=== PATIENT | female | born 1990 | race Caucasian/White ===

== ENCOUNTER 2021-06-25 11:43 | Emergency (ER) | payer BC ==
[2021-06-25 12:47] VITALS: BP 114/83; PULSE 113; RESP 18; TEMP 100.5
[2021-06-25] MEDS ORDERED: SODIUM CHLORIDE 0.9% 1,000 ML IV ONE (13:55)
[2021-06-25] MEDS ORDERED: ACETAMINOPHEN TAB 500 MG TAB PO STA (13:55)
--- NOTE | 2021-06-25 13:58 | ED ---
General Adult HPI - General Chief complaint: Recheck/Abnormal Lab/Rx Stated complaint: COVID Exposure,Wants COVID Test Time Seen by Provider: 06/25/21 13:24 Source: patient, RN notes reviewed Mode of arrival: ambulatory Limitations: no limitations - History of Present Illness Initial comments: 31-year-old female presents emergency Department with chief complaint of COVID- 19 closure. Patient states she has mild symptoms including cough congestion fevers chills body aches. - Related Data Allergies Allergy/AdvReac Type Severity Reaction Status Date / Time amoxicillin [From Augmentin] Allergy Rash/Hives Verified 06/25/21 12:47 clavulanic acid Allergy Rash/Hives Verified 06/25/21 12:47 [From Augmentin] Review of Systems ROS Statement: Those systems with pertinent positive or pertinent negative responses have been documented in the HPI. ROS Other: All systems not noted in ROS Statement are negative. Past Medical History Past Medical History: Hyperlipidemia History of Any Multi-Drug Resistant Organisms: None Reported Past Surgical History: No Surgical Hx Reported Past Psychological History: No Psychological Hx Reported Smoking Status: Never smoker Past Alcohol Use History: Occasional Past Drug Use History: None Reported General Exam Limitations: no limitations General appearance: alert, in no apparent distress Head exam: Present: atraumatic, normocephalic, normal inspection Eye exam: Present: normal appearance, PERRL, EOMI. Absent: scleral icterus, conjunctival injection, periorbital swelling ENT exam: Present: normal exam, normal oropharynx, mucous membranes moist Neck exam: Present: normal inspection, full ROM. Absent: tenderness, meningismus, lymphadenopathy Respiratory exam: Present: normal lung sounds bilaterally. Absent: respiratory distress, wheezes, rales, rhonchi, stridor Cardiovascular Exam: Present: normal rhythm, tachycardia, normal heart sounds. Absent: systolic murmur, diastolic murmur, rubs, gallop, clicks Course Vital Signs 06/25/21 12:45 Temperature 100.5 F H Pulse Rate 113 H Respiratory 18 Rate Blood Pressure 114/83 O2 Sat by Pulse 99 Oximetry Medical Decision Making - Medical Decision Making Patient is positive or COVID-19, patient will receive monoclonal antibodies will be discharged stable condition. - Lab Data Lab Results 06/25/21 Range/Units 12:45 Coronavirus (PCR) Detected A (Not Detectd) Disposition Clinical Impression: COVID-19 Disposition: HOME SELF-CARE Condition: Stable Instructions (If sedation given, give patient instructions): Coronavirus Disease 2019 (COVID-19) Additional Instructions: Please return to the Emergency Department if symptoms worsen or any other concerns. Is patient prescribed a controlled substance at d/c from ED?: No Referrals: Nonstaff,Physician [Primary Care Provider] - 1-2 days
[2021-06-25] MEDS ORDERED: BAMLANIVIMAB (EUA) 700 MG, ETESEVIMAB (EUA) 1,400 MG in SODIUM CHLORIDE 0.9% 50 ML IVPB ONE (14:30)
[2021-06-25] MEDS ORDERED: SODIUM CHLORIDE 0.9% 50 ML IVPB ONE (15:00)
== END 2021-06-25 16:19 | disposition home or self-care (01) ==
LOC: EC 11:43
DX: U07.1 COVID-19 (principal); Z88.1 Allergy status to other antibiotic agents
CPT/HCPCS: 99283 ×2; 96365; 96361 ×2; 87635; M0243; J3490

== ENCOUNTER 2021-11-02 17:49 | Observation (INO) | payer BC ==
[2021-11-02] MEDS ORDERED: SODIUM CHLORIDE 0.9% 1,000 ML IV STA (21:22)
[2021-11-02] MEDS ORDERED: METOCLOPRAMIDE 5 MG/ML 2 ML VIAL IVP STA (21:35)
[2021-11-02] MEDS ORDERED: ACETAMINOPHEN TAB 325 MG TAB PO STA (22:09)
[2021-11-02 23:52] LABS: Appearance,Urine Clear (Clear); Bilirubin,Urine Negative (Negative); Blood,Urine Negative (Negative); Color,Urine Yellow; Glucose,Urine (UA) Negative (Negative); Ketones,Urine 4+ (Negative); Leukocyte Esterase,Urine Small (Negative); Mucus,Urine Few /hpf; Nitrite,Urine Negative (Negative); PH, Urine 5.5 (5.0-8.0); Protein,Urine Trace (Negative); RBC,Urine <1 /hpf (0-5); Specific Gravity,Urine 1.024 (1.001-1.035); Squamous Epithelial Cell,Urine 2 /hpf (0-4); Urobilinogen,Urine <2.0 mg/dL (<2.0); WBC,Urine 3 /hpf (0-5)
--- NOTE | 2021-11-02 23:59 | ED ---
Nausea/Vomiting/Diarrhea HPI - General Chief complaint: Nausea/Vomiting/Diarrhea Stated complaint: NVD,10wks Time Seen by Provider: 11/02/21 21:06 Source: patient, family, RN notes reviewed Mode of arrival: ambulatory Limitations: no limitations - History of Present Illness Initial comments: This is a 31-year-old 10 week female who presents to the emergency department for nausea, vomiting, and diarrhea. Her partner recently recovered from a GI bug that lasted 48 hours. She has been having symptoms for approximately 36 hours. His symptoms also included nausea, vomiting, and diarrhea. She has not measured any fevers at home, however she does have an elevated temperature here. She does have an appointment with her ic designer gate arrays scheduled for next week. Denies any vaginal bleeding/leaking or abdominal pain. MD complaint: nausea, vomiting, diarrhea Associated Abdominal Pain: No Worsens with: eating Context: sick contacts - Related Data Home Medications Medication Instructions Recorded Confirmed Eye-Gojf-Yhowi Acid 1 cap PO DAILY 11/02/21 11/02/21 [-U Capsule (formulary)] Previous Rx's Medication Instructions Recorded Metoclopramide HCl [Reglan] 5 mg PO TID PRN #10 tablet 11/03/21 Allergies Allergy/AdvReac Type Severity Reaction Status Date / Time amoxicillin [From Augmentin] Allergy Rash/Hives Verified 11/02/21 22:11 clavulanic acid Allergy Rash/Hives Verified 11/02/21 22:11 [From Augmentin] Review of Systems ROS Statement: Those systems with pertinent positive or pertinent negative responses have been documented in the HPI. ROS Other: All systems not noted in ROS Statement are negative. Constitutional: Denies: fever, chills ENT: Denies: ear pain, throat pain Respiratory: Denies: cough, dyspnea Cardiovascular: Denies: chest pain, palpitations Gastrointestinal: Reports: nausea, vomiting, diarrhea. Denies: abdominal pain Genitourinary: Denies: urgency, dysuria Skin: Denies: rash, lesions Neurological: Denies: headache Past Medical History Past Medical History: Hyperlipidemia History of Any Multi-Drug Resistant Organisms: None Reported Past Surgical History: No Surgical Hx Reported Past Psychological History: No Psychological Hx Reported Smoking Status: Never smoker Past Alcohol Use History: None Reported, Occasional Past Drug Use History: None Reported General Exam Limitations: no limitations General appearance: alert, in distress Head exam: Present: atraumatic, normocephalic, normal inspection ENT exam: Present: mucous membranes dry Neck exam: Present: normal inspection. Absent: tenderness, meningismus, lymphadenopathy Respiratory exam: Present: normal lung sounds bilaterally. Absent: respiratory distress, wheezes, rales, rhonchi, stridor Cardiovascular Exam: Present: regular rate, normal rhythm, normal heart sounds. Absent: systolic murmur, diastolic murmur, rubs, gallop, clicks GI/Abdominal exam: Present: soft, hyperactive bowel sounds. Absent: distended, tenderness Neurological exam: Present: alert, oriented X3, CN II-XII intact Psychiatric exam: Present: normal affect, normal mood Skin exam: Present: warm, dry, intact, normal color. Absent: rash Course Vital Signs 11/02/21 11/02/21 18:21 23:39 Temperature 100.6 F H 97.9 F Pulse Rate 113 H 98 Respiratory 20 16 Rate Blood Pressure 111/65 O2 Sat by Pulse 98 100 Oximetry Medical Decision Making - Medical Decision Making This is a 31-year-old female who presents to the emergency department with nausea, vomiting, and diarrhea. Patient is also noted be 10 weeks . She was rehydrated with a 1 liter bolus and given vitamin B6 and Reglan for the nausea and vomiting. Discussed that Reglan has been shown to be among the safest of the antiemetics in . Tylenol administered as well for the low grade fever, and her temperature went from 100.6 degrees F to 97.9 degrees F. CBC and CMP unremarkable and her UA was consistent with dehydration. 10 Reglan sent to the patient's pharmacy, advised to use this sparingly for uncontrolled nausea and vomiting. Advised she try the combination of vitamin B6 and unisom to begin with. Patient inquired about anti-diarrheal medication. Informed them that Imodium can be used short term, for no more than 48hrs. This can be purchased OTC, as their insurance plan will not cover it according to the EMR. Advised she continue to push the fluids as much as possible and ease into foods to avoid exacerbating her symptoms. The lab called back with a critical potassium value of 2.6. Patient replaced with 40 mEq PO and 20 mEq IV, as well as given another 1L fluid bolus. 1 dose of imodium administered as well for patient's diarrhea. Repeat labs ordered for potassium, magnesium, and phosphorus. Patient will be hooked up to the food and beverage coordinator given the low potassium. This case was discussed in detail with the attending ED physician. Presentation, findings, and treatment plan discussed in detail as well. Patient will be signed out to Dr. Mazariegos, who will reevaluate the patient throughout the night. - Lab Data Result diagrams: 11/03/21 00:19 11/03/21 00:19 Lab Results 11/02/21 11/03/21 11/03/21 Range/Units 23:29 00:19 00:19 WBC 5.9 (3.8-10.6) k/uL RBC 4.29 (3.80-5.40) m/uL Hgb 14.2 (11.4-16.0) gm/dL Hct 39.5 (34.0-46.0) % MCV 92.2 (80.0-100.0) fL MCH 33.1 (25.0-35.0) pg MCHC 35.9 (31.0-37.0) g/dL RDW 13.2 (11.5-15.5) % Plt Count 182 (150-450) k/uL MPV 6.9 Neutrophils % 80 % Lymphocytes % 12 % Monocytes % 6 % Eosinophils % 1 % Basophils % 0 % Neutrophils # 4.7 (1.3-7.7) k/uL Lymphocytes # 0.7 L (1.0-4.8) k/uL Monocytes # 0.3 (0-1.0) k/uL Eosinophils # 0.1 (0-0.7) k/uL Basophils # 0.0 (0-0.2) k/uL Sodium 130 L (137-145) mmol/L Potassium 2.6 L* (3.5-5.1) mmol/L Chloride 103 (98-107) mmol/L Carbon Dioxide 23 (22-30) mmol/L Anion Gap 4 mmol/L BUN 8 (7-17) mg/dL Creatinine 0.55 (0.52-1.04) mg/dL Est GFR (CKD-EPI)AfAm >90 (>60 ml/min/1.73 sqM) Est GFR (CKD-EPI)NonAf >90 (>60 ml/min/1.73 sqM) Glucose 101 H (74-99) mg/dL Calcium 7.6 L (8.4-10.2) mg/dL Total Bilirubin 1.1 (0.2-1.3) mg/dL AST 18 (14-36) U/L ALT 12 (4-34) U/L Alkaline Phosphatase 37 L (38-126) U/L Total Protein 5.4 L (6.3-8.2) g/dL Albumin 3.0 L (3.5-5.0) g/dL Urine Color Yellow Urine Appearance Clear (Clear) Urine pH 5.5 (5.0-8.0) Ur Specific [place] 1.024 (1.001-1.035) Urine Protein Trace H (Negative) Urine Glucose (UA) Negative (Negative) Urine Ketones 4+ H (Negative) Urine Blood Negative (Negative) Urine Nitrite Negative (Negative) Urine Bilirubin Negative (Negative) Urine Urobilinogen <2.0 (<2.0) mg/dL Ur Leukocyte Esterase Small H (Negative) Urine RBC <1 (0-5) /hpf Urine WBC 3 (0-5) /hpf Ur Squamous Epith Cells 2 (0-4) /hpf Urine Mucus Few H (None) /hpf Disposition Clinical Impression: Viral gastroenteritis Disposition: HOME SELF-CARE Instructions (If sedation given, give patient instructions): Dehydration (ED), Gastroenteritis (ED) Additional Instructions: Return to the emergency department if your symptoms worsen or do not improve. Drink plenty of fluids and slowly expand your diet to avoid exacerbating symptoms. Contact your ic designer gate arrays tomorrow morning and inform them of the ER visit. Follow up with your primary care provider in 1 to 2 days. Prescriptions: Metoclopramide HCl [Reglan] 5 mg PO TID PRN #10 tablet PRN Reason: Nausea And Vomiting Is patient prescribed a controlled substance at d/c from ED?: No Referrals: Michelle Arita DO [Primary Care Provider] - 1-2 days
[2021-11-03] MEDS ORDERED: PYRIDOXINE 100 MG/ML 1 ML VIAL IVP ONE (00:02)
[2021-11-03 00:30] LABS: Basophils % (A) 0 %; Eosinophils # (A) 0.1 k/uL (0-0.7); Eosinophils % (A) 1 %; HCT 39.5 % (34.0-46.0); HGB 14.2 gm/dL (11.4-16.0); Lymphocytes # (A) 0.7 k/uL (1.0-4.8); Lymphocytes % (A) 12 %; MCH 33.1 pg (25.0-35.0); MCHC 35.9 g/dL (31.0-37.0); MCV 92.2 fL (80.0-100.0); Mean Platelet Volume 6.9; Monocytes # (A) 0.3 k/uL (0-1.0); Monocytes % (A) 6 %; Neutrophils # (A) 4.7 k/uL (1.3-7.7); Neutrophils % (A) 80 %; Platelet Count 182 k/uL (150-450); RBC 4.29 m/uL (3.80-5.40); RDW 13.2 % (11.5-15.5); WBC 5.9 k/uL (3.8-10.6)
[2021-11-03 00:41] LABS: ALT 12 U/L (4-34); AST 18 U/L (14-36); African American GFR (CKD) >90 (>60 ml/min/1.73 sqM); Alkaline Phosphatase 37 U/L (38-126); Anion Gap 4 mmol/L; Blood Urea Nitrogen 8 mg/dL (7-17); Calcium 7.6 mg/dL (8.4-10.2); Carbon Dioxide 23 mmol/L (22-30); Chloride 103 mmol/L (98-107); Glucose 101 mg/dL (74-99); Non-African American GFR(CKD) >90 (>60 ml/min/1.73 sqM); Sodium 130 mmol/L (137-145); Total Bilirubin 1.1 mg/dL (0.2-1.3); Total Protein 5.4 g/dL (6.3-8.2)
[2021-11-03 01:21] LABS: Potassium 2.6 mmol/L (3.5-5.1)
[2021-11-03] MEDS ORDERED: POTASSIUM BICARBONATE/CIT AC 20 MEQ TABLET.EFF PO ONE ×2 (01:23→03:30)
[2021-11-03] MEDS ORDERED: LOPERAMIDE 2 MG CAP PO STA (01:25)
[2021-11-03] MEDS ORDERED: SODIUM CHLORIDE 0.9% 1,000 ML IV ONE (01:30)
[2021-11-03] MEDS ORDERED: POTASSIUM CHLORIDE 20 MEQ in WATER FOR INJECTION 1 100ML.BAG IVPB STA (01:30)
[2021-11-03 01:45] LABS: Magnesium 1.5 mg/dL (1.6-2.3); Phosphorus 2.9 mg/dL (2.5-4.5)
[2021-11-03 02:14] VITALS: PULSE 90; RESP 18
[2021-11-03] MEDS ORDERED: diphenhydrAMINE 50 MG/ML 1 ML VIAL IVP STA (03:30)
[2021-11-03] MEDS ORDERED: MAGNESIUM OXIDE 400 MG TAB PO STA ×2 (03:31)
[2021-11-03] MEDS ORDERED: ACETAMINOPHEN TAB 325 MG TAB PO PRN (03:34)
[2021-11-03] MEDS ORDERED: NALOXONE 0.4 MG/ML 1 ML VIAL IV PRN (03:34)
[2021-11-03] MEDS ORDERED: ONDANSETRON 4 MG/2 ML VIAL IVP PRN (03:34)
[2021-11-03] MEDS ORDERED: diphenhydrAMINE 50 MG/ML 1 ML VIAL IVP PRN (03:36)
--- NOTE | 2021-11-03 03:38 | ED ---
Medical Decision Making - Lab Data Result diagrams: 11/03/21 00:19 11/03/21 00:19 Lab Results 11/02/21 11/02/21 11/03/21 Range/Units 23:29 23:29 00:19 WBC 5.9 (3.8-10.6) k/uL RBC 4.29 (3.80-5.40) m/uL Hgb 14.2 (11.4-16.0) gm/dL Hct 39.5 (34.0-46.0) % MCV 92.2 (80.0-100.0) fL MCH 33.1 (25.0-35.0) pg MCHC 35.9 (31.0-37.0) g/dL RDW 13.2 (11.5-15.5) % Plt Count 182 (150-450) k/uL MPV 6.9 Neutrophils % 80 % Lymphocytes % 12 % Monocytes % 6 % Eosinophils % 1 % Basophils % 0 % Neutrophils # 4.7 (1.3-7.7) k/uL Lymphocytes # 0.7 L (1.0-4.8) k/uL Monocytes # 0.3 (0-1.0) k/uL Eosinophils # 0.1 (0-0.7) k/uL Basophils # 0.0 (0-0.2) k/uL Sodium (137-145) mmol/L Potassium (3.5-5.1) mmol/L Chloride (98-107) mmol/L Carbon Dioxide (22-30) mmol/L Anion Gap mmol/L BUN (7-17) mg/dL Creatinine (0.52-1.04) mg/dL Est GFR (CKD-EPI)AfAm (>60 ml/min/1.73 sqM) Est GFR (CKD-EPI)NonAf (>60 ml/min/1.73 sqM) Glucose (74-99) mg/dL Calcium (8.4-10.2) mg/dL Phosphorus (2.5-4.5) mg/dL Magnesium (1.6-2.3) mg/dL Total Bilirubin (0.2-1.3) mg/dL AST (14-36) U/L ALT (4-34) U/L Alkaline Phosphatase (38-126) U/L Total Protein (6.3-8.2) g/dL Albumin (3.5-5.0) g/dL HCG, Quant 206622.0 mIU/mL Urine Color Yellow Urine Appearance Clear (Clear) Urine pH 5.5 (5.0-8.0) Ur Specific [place] 1.024 (1.001-1.035) Urine Protein Trace H (Negative) Urine Glucose (UA) Negative (Negative) Urine Ketones 4+ H (Negative) Urine Blood Negative (Negative) Urine Nitrite Negative (Negative) Urine Bilirubin Negative (Negative) Urine Urobilinogen <2.0 (<2.0) mg/dL Ur Leukocyte Esterase Small H (Negative) Urine RBC <1 (0-5) /hpf Urine WBC 3 (0-5) /hpf Ur Squamous Epith Cells 2 (0-4) /hpf Urine Mucus Few H (None) /hpf 11/03/21 11/03/21 Range/Units 00:19 00:19 WBC (3.8-10.6) k/uL RBC (3.80-5.40) m/uL Hgb (11.4-16.0) gm/dL Hct (34.0-46.0) % MCV (80.0-100.0) fL MCH (25.0-35.0) pg MCHC (31.0-37.0) g/dL RDW (11.5-15.5) % Plt Count (150-450) k/uL MPV Neutrophils % % Lymphocytes % % Monocytes % % Eosinophils % % Basophils % % Neutrophils # (1.3-7.7) k/uL Lymphocytes # (1.0-4.8) k/uL Monocytes # (0-1.0) k/uL Eosinophils # (0-0.7) k/uL Basophils # (0-0.2) k/uL Sodium 130 L (137-145) mmol/L Potassium 2.6 L* (3.5-5.1) mmol/L Chloride 103 (98-107) mmol/L Carbon Dioxide 23 (22-30) mmol/L Anion Gap 4 mmol/L BUN 8 (7-17) mg/dL Creatinine 0.55 (0.52-1.04) mg/dL Est GFR (CKD-EPI)AfAm >90 (>60 ml/min/1.73 sqM) Est GFR (CKD-EPI)NonAf >90 (>60 ml/min/1.73 sqM) Glucose 101 H (74-99) mg/dL Calcium 7.6 L (8.4-10.2) mg/dL Phosphorus 2.9 (2.5-4.5) mg/dL Magnesium 1.5 L (1.6-2.3) mg/dL Total Bilirubin 1.1 (0.2-1.3) mg/dL AST 18 (14-36) U/L ALT 12 (4-34) U/L Alkaline Phosphatase 37 L (38-126) U/L Total Protein 5.4 L (6.3-8.2) g/dL Albumin 3.0 L (3.5-5.0) g/dL HCG, Quant mIU/mL Urine Color Urine Appearance (Clear) Urine pH (5.0-8.0) Ur Specific [place] (1.001-1.035) Urine Protein (Negative) Urine Glucose (UA) (Negative) Urine Ketones (Negative) Urine Blood (Negative) Urine Nitrite (Negative) Urine Bilirubin (Negative) Urine Urobilinogen (<2.0) mg/dL Ur Leukocyte Esterase (Negative) Urine RBC (0-5) /hpf Urine WBC (0-5) /hpf Ur Squamous Epith Cells (0-4) /hpf Urine Mucus (None) /hpf Disposition Clinical Impression: Viral gastroenteritis, Fever, Hypokalemia, Hypomagnesemia, Dehydration, Gastroenteritis, Disposition: ADMITTED IP TO [facility] Instructions (If sedation given, give patient instructions): Dehydration (ED), Gastroenteritis (ED) Additional Instructions: Return to the emergency department if your symptoms worsen or do not improve. Drink plenty of fluids and slowly expand your diet to avoid exacerbating symptoms. Contact your loan approver tomorrow morning and inform them of the ER visit. Follow up with your primary care provider in 1 to 2 days. Prescriptions: Metoclopramide HCl [Reglan] 5 mg PO TID PRN #10 tablet PRN Reason: Nausea And Vomiting Is patient prescribed a controlled substance at d/c from ED?: No Referrals: Michelle Arita, DO [Primary Care Provider] - 1-2 days
[2021-11-03] MEDS ORDERED: SODIUM CHLORIDE 0.9% 1,000 ML IV SCH (03:45)
[2021-11-03 06:51] VITALS: BP 107/69; TEMP 98.6
[2021-11-03] MEDS ORDERED: PYRIDOXINE 100 MG/ML 1 ML VIAL IVP SCH (09:00)
[2021-11-03 09:02] LABS: Basophils % (A) 0 %; Eosinophils % (A) 1 %; HCT 43.3 % (34.0-46.0); HGB 15.4 gm/dL (11.4-16.0); Lymphocytes # (A) 0.8 k/uL (1.0-4.8); Lymphocytes % (A) 14 %; MCH 33.2 pg (25.0-35.0); MCHC 35.5 g/dL (31.0-37.0); MCV 93.4 fL (80.0-100.0); Mean Platelet Volume 7.1; Monocytes # (A) 0.4 k/uL (0-1.0); Monocytes % (A) 7 %; Neutrophils # (A) 4.3 k/uL (1.3-7.7); Neutrophils % (A) 76 %; Platelet Count 203 k/uL (150-450); RBC 4.64 m/uL (3.80-5.40); RDW 13.5 % (11.5-15.5); WBC 5.6 k/uL (3.8-10.6)
[2021-11-03 09:16] LABS: ALT 14 U/L (4-34); AST 23 U/L (14-36); African American GFR (CKD) >90 (>60 ml/min/1.73 sqM); Albumin 3.4 g/dL (3.5-5.0); Alkaline Phosphatase 41 U/L (38-126); Anion Gap 5 mmol/L; Blood Urea Nitrogen 7 mg/dL (7-17); Calcium 8.2 mg/dL (8.4-10.2); Carbon Dioxide 25 mmol/L (22-30); Chloride 104 mmol/L (98-107); Glucose 100 mg/dL (74-99); Magnesium 1.8 mg/dL (1.6-2.3); Non-African American GFR(CKD) >90 (>60 ml/min/1.73 sqM); Potassium 3.5 mmol/L (3.5-5.1); Sodium 134 mmol/L (137-145); Total Protein 6.2 g/dL (6.3-8.2)
--- NOTE | 2021-11-03 11:41 | P.HPIM ---
History of Present Illness H&P Date: 11/03/21 HISTORY AND PHYSICAL AND DISCHARGE SUMMARY: HISTORY OF PRESENT ILLNESS This is a 31-year-old female patient of Dr. Arita with medical history of being 8 week, 5day , presented with nausea, vomiting and diarrhea. Symptoms have been ongoing for 36 hours. Patient's significant other also had same symptoms. No vaginal bleeding. She was seen in her CLERK office confirm on last Monday and is scheduled for ultrasound 11/05. Patient denies h aving any morning sickness. She states she has had 2 episodes of diarrhea today and Reglan has helped the vomiting. Patient presented to [facility] emergency center and found to have temperature of 100.6, heart rate 113, blood pressure 111/65, pulse ox 90% on room air. CBC was unremarkable. Sodium 130, potassium 2.6, chloride 103, CO2 23, BUN 8 and creatinine 0.55. Blood sugar 101. Calcium 7.6. Magnesium 1.5. Total bilirubin and liver function tests within normal limits. Albumin 3.0. Urinalysis revealed ketones 4+, leukoesterase small. Patient is status post 2 L of IV fluid bolus, Reglan and Tylenol, total of 100 mEq of potassium, magnesium oxide, 1 dose of Imodium and patient admitted to the observation unit. Patient is seen today in the emergency center waiting for a bed on the observation unit. Limitations, no significant abnormalities. Patient is currently stable and will be discharged home today. She has been instructed on bland diet, no Imodium. It is okay to take Tums or Pepcid. Patient to follow-up as planned with HOUSEHOLD REFRIGERATION MECHANIC on Monday. REVIEW OF SYSTEMS Constitutional: No fever, no chills, no night sweats. No weight change. No weakness, fatigue or lethargy. No daytime sleepiness. EENT: No headache. No blurred vision or double vision, no loss of vision. No loss of Hearing, no ringing in the ears, no dizziness. No nasal drainage or congestion. No epistaxis. No sore throat. Lungs: No shortness of breath, cough, no sputum production. No wheezing. Cardiovascular: No chest pain, no lower extremity edema. No palpitations. No paroxysmal nocturnal dyspnea. No orthopnea. No lightheadedness or dizziness. No syncopal episodes. Abdominal: No abdominal pain. Reports nausea, vomiting. Reports diarrhea. No constipation. No bloody or tarry stools. No loss of appetite. Genitourinary: No dysuria, increased frequency, urgency. No urinary retention. Musculoskeletal: No myalgias. No muscle weakness, no gait dysfunction, no frequent falls. No back pain. No neck pain. Integumentary: No wounds, no lesions. No rash or pruritus. No unusual bruising. No change in hair or nails. Neurologic: No aphasia. No facial droop. No change in mentation. No head injury. No headache. No paralysis. No paresthesia. Psychiatric: No depression. No anxiety. No mood swings. Endocrine: No abnormal blood sugars. No weight change. No excessive sweating or thirst. No cold intolerance. SOCIAL HISTORY Patient is a lifelong nonsmoker, no alcohol use, marijuana or illicit drug use. She lives at home with her significant other. FAMILY HISTORY Mother is alive with history of hyperlipidemia and breast cancer runs in her family. Father is alive with history of hyperlipidemia and coronary artery disease in his family. Patient has 1 brother with no major medical problems. PHYSICAL EXAMINATION Gen: This is a 31-year-old female resting on the ER bed and appears to be comfortable and in no acute distress. HEENT: Head is atraumatic, normocephalic. Pupils equal, round. Sclerae is anicteric. NECK: Supple. No JVD. No lymphadenopathy. No thyromegaly. LUNGS: Clear to auscultation. No wheezes or rhonchi. No intercostal retract ions. HEART: Regular rate and rhythm. No murmur. ABDOMEN: Soft. Bowel sounds are present. No masses. No tenderness. EXTREMITIES: No pedal edema. No calf tenderness. NEUROLOGICAL: Patient is awake, alert and oriented x3. Cranial nerves 2 through 12 are grossly intact. ASSESSMENT AND PLAN 1. Sepsis secondary to Viral gastroenteritis. 2. Dehydration. Status post 2 L of IV fluid bolus. 3. Severe hypokalemia status post replacement. 4. . Patient placed as observation status. DISCHARGE MEDICATIONS Fbq-Euqf-Jmegz Acid [-U Capsule (formulary)] 1 cap PO DAILY 11/02/21 [History] Cholestyramine (with Sugar) [Questran] 4 gm PO TID #10 packet 11/03/21 [Rx] Metoclopramide HCl [Reglan] 5 mg PO TID PRN #10 tablet 11/03/21 [Rx] DISCHARGE PLAN Home. Greater than 35 minutes was utilized and coordinating patient's discharge. Impression and plan of care have been directed as dictated by the signing physician. Leslie Lin nurse practitioner acting as scribe for signing physician. Past Medical History Past Medical History: Hyperlipidemia History of Any Multi-Drug Resistant Organisms: None Reported Past Surgical History: No Surgical Hx Reported Past Psychological History: No Psychological Hx Reported Smoking Status: Never smoker Past Alcohol Use History: None Reported, Occasional Past Drug Use History: None Reported - Past Family History Father Family Medical History: Hyperlipidemia Additional Family Medical History / Comment(s): Heart issues. Mother Family Medical History: Hyperlipidemia Additional Family Medical History / Comment(s): Mother's side of family has alot of breast cancer, pt's mother did not have breast cancer. Medications and Allergies Home Medications Medication Instructions Recorded Confirmed Type Ncz-Gjvv-[id number] Acid 1 cap PO DAILY 11/02/21 11/02/21 History [-U Capsule (formulary)] Cholestyramine (with Sugar) 4 gm PO TID #10 packet 11/03/21 Rx [Questran] Metoclopramide HCl [Reglan] 5 mg PO TID PRN #10 tablet 11/03/21 Rx Allergies Allergy/AdvReac Type Severity Reaction Status Date / Time amoxicillin [From Augmentin] Allergy Rash/Hives Verified 11/02/21 22:11 clavulanic acid Allergy Rash/Hives Verified 11/02/21 22:11 [From Augmentin] Physical Exam Vitals: Vital Signs Temp Pulse Resp BP Pulse Ox 11/03/21 06:50 98.6 F 90 18 107/69 98 11/03/21 02:12 98.0 F 90 18 104/72 99 11/02/21 23:39 97.9 F 98 16 100 11/02/21 18:21 100.6 F H 113 H 20 111/65 98 Intake and Output 11/02/21 11/03/21 11/03/21 22:59 06:59 14:59 Other: Weight 89.358 kg Results CBC & Chem 7: 11/03/21 08:21 11/03/21 08:21 Labs: Abnormal Lab Results - Last 24 Hours (Table) 0311/03/21 11/03/21 Range/Units 23:29 00:19 00:19 Lymphocytes # 0.7 L (1.0-4.8) k/uL Sodium 130 L (137-145) mmol/L Potassium 2.6 L* (3.5-5.1) mmol/L Glucose 101 H (74-99) mg/dL Calcium 7.6 L (8.4-10.2) mg/dL Magnesium (1.6-2.3) mg/dL Alkaline Phosphatase 37 L (38-126) U/L Total Protein 5.4 L (6.3-8.2) g/dL Albumin 3.0 L (3.5-5.0) g/dL Urine Protein Trace H (Negative) Urine Ketones 4+ H (Negative) Ur Leukocyte Esterase Small H (Negative) Urine Mucus Few H (None) /hpf 11/03/21 Range/Units 00:19 Lymphocytes # (1.0-4.8) k/uL Sodium (137-145) mmol/L Potassium (3.5-5.1) mmol/L Glucose (74-99) mg/dL Calcium (8.4-10.2) mg/dL Magnesium 1.5 L (1.6-2.3) mg/dL Alkaline Phosphatase (38-126) U/L Total Protein (6.3-8.2) g/dL Albumin (3.5-5.0) g/dL Urine Protein (Negative) Urine Ketones (Negative) Ur Leukocyte Esterase (Negative) Urine Mucus (None) /hpf
--- NOTE | 2021-11-03 12:33 | US ---
EXAMINATION TYPE: US gallbladder DATE OF EXAM: 11/03/2021 COMPARISON: NONE CLINICAL HISTORY: RUQ pain and nausea/vomiting. EXAM MEASUREMENTS: Liver Length: 15.2 cm Gallbladder Wall: 0.1 cm CBD: 0.3 cm Right Kidney: 12.1 x 4.1 x 4.8 cm Pancreas: Obscured by bowel gas Liver: no masses seen Gallbladder: wnl Evidence for sonographic Patricia's sign: no CBD: wnl Right Kidney: Partially obscured by overlying bowel gas , and there is no hydronephrosis or patholog ic calcification, cortical medullary differentiation is maintained IMPRESSION: There are limitations to the exam. No significant abnormalities evident.
== END 2021-11-03 13:21 | disposition home or self-care (01) ==
LOC: EC 17:49 → 6NMEDSUR 11-03 03:35
PROVIDERS: ADMIT Internal Medicine Geriatric Medicine; ATTEND Internal Medicine Geriatric Medicine
DX: O21.8 Other vomiting complicating pregnancy (principal); A08.4 Viral intestinal infection, unspecified; A41.89 Other specified sepsis; B97.89 Other viral agents as the cause of diseases classified elsewhere; Z3A.10 10 weeks gestation of pregnancy; O99.281 Endocrine, nutritional and metabolic diseases complicating pregnancy, first trimester; E78.5 Hyperlipidemia, unspecified; E86.0 Dehydration; E87.6 Hypokalemia; E83.42 Hypomagnesemia; Z53.29 Procedure and treatment not carried out because of patient's decision for other reasons; Z88.0 Allergy status to penicillin; Z71.9 Counseling, unspecified; Z82.49 Family history of ischemic heart disease and other diseases of the circulatory system; Z80.3 Family history of malignant neoplasm of breast; Z83.438 Family history of other disorder of lipoprotein metabolism and other lipidemia
CPT/HCPCS: 96376; 96361 ×2; 96365; 96366; 96375 ×2; 99284; 36415 ×2; 80053; 83735; 84100; 85025; 81001; 84702; 76705; G0378; J3415; J2765; J3480

== ENCOUNTER 2022-06-08 11:56 | Inpatient (IN) | payer BC ==
[2022-06-08] MEDS: LACTATED RINGERS 1,000 ML IV SCH ×4 (13:00→22:27)
[2022-06-08] MEDS ORDERED: OXYTOCIN 10 UNIT/ML 1 ML VIAL IM PRN (13:18)
[2022-06-08] MEDS ORDERED: CARBOPROST TROMETHAMINE 250 MCG/ML 1 ML AMP IM PRN (13:18)
[2022-06-08] MEDS ORDERED: METHYLERGONOVINE 0.2 MG/ML 1 ML AMP IM PRN (13:18)
[2022-06-08] MEDS ORDERED: TERBUTALINE 1 MG/ML VIAL SQ PRN (13:18)
[2022-06-08] MEDS ORDERED: LIDOCAINE 0.5% (PF) 5 MG/ML (50 ML SDV) SQ PRN (13:18)
[2022-06-08] MEDS ORDERED: OXYTOCIN 30 UNITS/500 ML NS 30 UNIT in SALINE 1 500ML.BAG IV SCH ×2 (13:30→21:43)
[2022-06-08] MEDS ORDERED: BUTORPHANOL 1 MG/ML 1 ML VIAL IV PRN (13:48)
[2022-06-08 13:51] LABS: Basophils % (A) 0 %; Eosinophils % (A) 0 %; HCT 45.1 % (34.0-46.0); HGB 15.9 gm/dL (11.4-16.0); Lymphocytes # (A) 1.1 k/uL (1.0-4.8); Lymphocytes % (A) 7 %; MCH 33.5 pg (25.0-35.0); MCHC 35.3 g/dL (31.0-37.0); MCV 95.1 fL (80.0-100.0); Mean Platelet Volume 9.7; Monocytes # (A) 0.7 k/uL (0-1.0); Monocytes % (A) 4 %; Neutrophils # (A) 14.5 k/uL (1.3-7.7); Neutrophils % (A) 88 %; Platelet Count 149 k/uL (150-450); Poikilocytosis Slight; RBC 4.74 m/uL (3.80-5.40); RDW 14.5 % (11.5-15.5); WBC 16.4 k/uL (3.8-10.6)
[2022-06-08] MEDS ORDERED: fentaNYL (PF) 50 MCG/ML 5 ML AMP ONE (15:12)
[2022-06-08] MEDS ORDERED: SODIUM CHLORIDE 0.9% 100 ML BAG ONE (15:12)
[2022-06-08] MEDS ORDERED: ROPIVACAINE 5 MG/ML 20 ML AMPULE ONE (15:12)
--- NOTE | 2022-06-08 17:30 | P.HPOB ---
History of Present Illness H&P Date: 06/08/22 Chief Complaint: IUP at 39 and 5, active labor This is a 32-year-old 1 para 0 at 39-5/7 weeks that presented to labor and delivery this afternoon with complaints of regular painful contractions. Patient states the contractions became more intense overnight and she decided to present to the hospital when she was unable to tolerate them at home. She denied loss of fluid. Patient was noted to be 3 cm/ 90%/ -2 station. Patient was seen in the office yesterday noted to be 1 cm. Patient has been receiving routine care which has been essentially uncomplicated. On bloodwork this patient has a blood type of A+, rubella status immune, hepatitis B surface antigen negative, HIV negative, RPR nonreactive, group beta strep cultures are negative. Review of Systems Constitutional: Denies chills, Denies fatigue, Denies fever Ears, nose, mouth and throat: Denies headache Cardiovascular: Reports leg edema Respiratory: Denies dyspnea Gastrointestinal: Denies constipation, Denies diarrhea, Denies nausea, Denies vomiting Genitourinary: Reports Past Medical History Past Medical History: Hyperlipidemia Additional Past Medical History / Comment(s): Pt states she will be 9 weeks on 11/05/21, high cholesterol but pt lost weight/changed diet so no longer a problem. History of Any Multi-Drug Resistant Organisms: None Reported Past Surgical History: No Surgical Hx Reported Additional Past Surgical History / Comment(s): [place] teeth extractions, bilateral myringotomy/tubes. Past Anesthesia/Blood Transfusion Reactions: No Reported Reaction Past Psychological History: No Psychological Hx Reported Additional Psychological History / Comment(s): Pt resides with her spouse. She is independent. Smoking Status: Never smoker Past Alcohol Use History: None Reported, Occasional Past Drug Use History: None Reported - Past Family History Father Family Medical History: Hyperlipidemia Additional Family Medical History / Comment(s): Heart issues. Mother Family Medical History: Hyperlipidemia Additional Family Medical History / Comment(s): Mother's side of family has alot of breast cancer, pt's mother did not have breast cancer. Medications and Allergies Home Medications Medication Instructions Recorded Confirmed Type Foa-[id number]-Ajxzr Acid 1 cap PO DAILY 11/02/21 11/02/21 History [-U Capsule (formulary)] Allergies Allergy/AdvReac Type Severity Reaction Status Date / Time amoxicillin [From Augmentin] Allergy Rash/Hives Verified 06/08/22 12:11 clavulanic acid Allergy Rash/Hives Verified 06/08/22 12:11 [From Augmentin] Exam Osteopathic Statement: *. No significant issues noted on an osteopathic structural exam other than those noted in the History and Physical/Consult. 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 Results Result Diagrams: 06/08/22 13:00 Abnormal Lab Results - Last 24 Hours (Table) 06/08/22 Range/Units 13:00 WBC 16.4 H (3.8-10.6) k/uL Plt Count 149 L (150-450) k/uL Neutrophils # 14.5 H (1.3-7.7) k/uL Assessment and Plan (1) Term Current Visit: Yes Status: Acute Code(s): Z34.90 - ENCNTR FOR SUPRVSN OF NORMAL , UNSP, UNSP TRIMESTER SNOMED Code(s): 03106518 (2) Active labor Current Visit: Yes Status: Acute Code(s): KOH2682 - SNOMED Code(s): 244009308 Plan: 32-year-old 1 para 0 at 39-5/7 weeks that presents in active labor. Amniotomy is performed. Clear fluid was obtained. Patient is counseled on options for analgesia during labor including Stadol and epidural. Patient will consider. We'll continue close observation with external monitoring and external toco.
[2022-06-08] MEDS ORDERED: ACETAMINOPHEN TAB 500 MG TAB PO STA (18:04)
[2022-06-08] MEDS ORDERED: CITRIC ACID-SODIUM CITRATE 15 ML CUP PO ONE (20:11)
[2022-06-08] MEDS ORDERED: PHENYLEPHRINE-0.9% NACL SYG 1,000 MCG/10 ML SYRINGE ONE (20:19)
[2022-06-08] MEDS ORDERED: DEXAMETHASONE SOD PHOSPHATE 4 MG/ML 1 ML VIAL ONE (20:19)
[2022-06-08] MEDS ORDERED: ONDANSETRON 4 MG/2 ML VIAL ONE (20:19)
[2022-06-08] MEDS ORDERED: MORPHINE SULFATE (PF) 0.3 MG/0.3 ML SYR ONE (20:19)
[2022-06-08] MEDS ORDERED: OXYTOCIN 30 UNITS/500 ML NS BAG IV ONE (20:19)
[2022-06-08] MEDS ORDERED: MORPHINE SULFATE 2 MG/ML SYRINGE IVP PRN (21:23)
[2022-06-08] MEDS ORDERED: NALOXONE 0.4 MG/ML 1 ML VIAL IV PRN ×2 (21:23→21:43)
[2022-06-08] MEDS ORDERED: diphenhydrAMINE 50 MG/ML 1 ML VIAL IVP PRN ×3 (21:23→21:43)
[2022-06-08] MEDS ORDERED: ONDANSETRON 4 MG/2 ML VIAL IVP PRN ×2 (21:23→21:43)
[2022-06-08] MEDS ORDERED: NALBUPHINE 10 MG/ML (1 ML AMP) IV PRN (21:23)
--- NOTE | 2022-06-08 21:23 | P.OP ---
Date of Procedure: 06/08/22 Preoperative Diagnosis: IUP at 39 and 5, nonreassuring heart tones, tachycardia Postoperative Diagnosis: Same plus occiput posterior presentation Procedure(s) Performed: Primary low transverse section Anesthesia: epidural Surgeon: Vernell Fletcher Home Economics Extension Worker #1: Brenda Faulkner Estimated Blood Loss (ml): 600 IV fluids (ml): 1,200 Urine output (ml): 50 (Concentrated and color) Pathology: other (Placenta) Condition: stable Disposition: observation Indications for Procedure: 32-year-old 1 para 0 at 39-5/7 weeks that presented to labor and delivery with complaints of regular painful contractions since afternoon. Patient states contractions started over night and became very uncomfortable this morning. Patient was noted to be 3 cm upon admission. Patient made good progress through labor amniotomy was performed around 1300. Patient made slow progress to complete and was noted have a maternal fever of 99.5. 1 g of oral Tylenol was given. 500 mL bolus of LR was initiated. heart tones were noted to be tachycardic into the 170s to 180s. Patient was noted to be complete and pushing commenced, heart tones were noted to be in the 190s with minimal variability. At this point the decision was made to proceed with primary low transverse section secondary to nonreassuring heart tones. Patient and are counseled on heart tones and need for C- section. Patient and stated understanding and desire to proceed Operative Findings: Viable male infant in occiput posterior presentation weight of 7 lbs. 9 oz., Apgars of 6 and 9 at one and 5 minutes respectively. Normal uterus was appreciated small fundal fibroid is noted, ovaries were normal bilaterally Description of Procedure: Patient was taken to the operating suite where epidural anesthesia was found to be adequate. She was prepped and draped in normal sterile fashion in the dorsal supine position. A Pfannenstiel skin incision was made with the scalpel and carried through the underlying layer of fascia. The fascia was incised in the midline and extended laterally. The superior aspect of the fascial incision was then grasped bella clamps, elevated and underlying rectus muscle was dissected off sharply. The inferior aspect of the fascial incision was then grasped bella clamps, elevated and underlying rectus muscle was dissected off sharply. The rectus muscles were in the midline the peritoneum was identified and entered. The bladder blade was then inserted into the pelvis and the vesicou terine peritoneum was identified. The bladder flap was then created using sharp and blunt dissection. The scalpel was used to make a hysterotomy incision, thick meconium was appreciated. The head was noted in occiput posterior presentation elevated through the uterine incision. The umbilical cord was doubly clamped and cut, and the infant was handed off to waiting men's custom hair piece consultant. A segment of cord was then excised for possible need for cord gases. The placenta was then delivered manually and the uterus was cleared of all clots and debris. The uterine incision was closed with 0 Vicryl in a running locked fashion a second inverting suture was performed. 2 [id number] sutures were used to perform hemostasis along the hysterotomy incision. Hemostasis was appreciated. The pelvis was then cleared of all clots and debris. The uterus was then returned to the abdomen, the hysterotomy incision was inspected hemostasis was appreciated and Surgicel powder was placed along the uterine incision. The the peritoneum was loosely reapproximated the rectus muscle was were inspected and found to be hemostatic. The fascia was then closed with 0 Vicryl in a running fashion from one lateral edge to the midline and the other lateral edge the midline. The subcu tissue was irrigated found to be hemostatic and closed with 3-0 Vicryl in a running fashion. The skin was then closed with 4-0 Vicryl in a subcuticular fashion. All counts were correct 2 at the end of the procedure. Patient and tolerated delivery well and are resting comfortably.
[2022-06-08] MEDS ORDERED: ZOLPIDEM 5 MG TAB PO PRN (21:43)
[2022-06-08] MEDS ORDERED: diphenhydrAMINE 25 MG CAP PO PRN (21:43)
[2022-06-08] MEDS ORDERED: METOCLOPRAMIDE 5 MG/ML 2 ML VIAL IVP PRN (21:43)
[2022-06-08] MEDS ORDERED: SIMETHICONE 80 MG CHEWABLE PO PRN (21:43)
[2022-06-08] MEDS ORDERED: diphenhydrAMINE 50 MG CAP PO PRN (21:43)
[2022-06-08] MEDS: IBUPROFEN IV 800 MG in SODIUM CHLORIDE 0.9% 250 ML IV SCH (22:25)
[2022-06-09] MEDS: ACETAMINOPHEN IV (For NPO) 1,000 MG in EMPTY BAG 1 BAG IVPB SCH ×2 (00:41→07:35)
[2022-06-09] MEDS: IBUPROFEN IV 800 MG in SODIUM CHLORIDE 0.9% 250 ML IV SCH ×2 (04:42→19:54)
--- NOTE | 2022-06-09 05:56 | P.PN ---
Progress Note - Text Progress Note Date: 06/09/22 (3411) Anesthesia Postop day [1] Subjective: Status Post [section] with Duramorph. Patient seen and examined. [Doing well without complaint]. VAS 3 out of 10. no nausea vomiting or pruritus. Denies fever. [Gross lower extremity strength intact]. Without apparent anesthetic complications. Objective: Vital signs reviewed Heart: [Regular Rate] Lungs: [Good chest excursion] Abdomen: [Appears nondistended] Assessment: Status post [] with Duramorph postop day 1 Plan: Continue current care with your medical management. [Anticipated and the Duramorph around 9pmtonight, you may see increased pain needs around this time.]
[2022-06-09 06:11] LABS: Basophils % (A) 0 %; Eosinophils % (A) 0 %; HCT 31.8 % (34.0-46.0); Lymphocytes # (A) 0.8 k/uL (1.0-4.8); Lymphocytes % (A) 5 %; MCHC 36.1 g/dL (31.0-37.0); MCV 94.3 fL (80.0-100.0); Mean Platelet Volume 9.2; Monocytes # (A) 0.6 k/uL (0-1.0); Monocytes % (A) 3 %; Neutrophils # (A) 16.5 k/uL (1.3-7.7); Neutrophils % (A) 92 %; Platelet Count 136 k/uL (150-450); RBC 3.37 m/uL (3.80-5.40); RDW 14.6 % (11.5-15.5)
[2022-06-09 06:13] LABS: HGB 11.5 gm/dL (11.4-16.0)
--- NOTE | 2022-06-09 06:26 | P.PNOBGPC ---
Subjective - Subjective Principal diagnosis: Postop day 1, primary Interval history: Patient is doing well this morning. She denies fevers. She is tolerating clear liquids without nausea or vomiting. She states her lochia is moderate. She is breast-feeding without difficulty. She states her pain is well-controlled. Patient reports: Reports appetite normal, Reports pain well controlled, Reports ambulating normally [place]: doing well, nursing well Objective - Vital Signs Latest vital signs: Vital Signs Temp Pulse Resp BP Pulse Ox 06/09/22 04:00 18 06/09/22 01:47 18 06/09/22 00:23 18 06/08/22 23:21 104 H 17 121/63 96 06/08/22 22:51 97.5 F L 102 H 17 116/67 96 06/08/22 22:23 17 96 06/08/22 22:21 99.5 F 105 H 18 137/59 06/08/22 22:06 108 H 18 147/70 97 06/08/22 21:51 102 H 17 144/74 99 06/08/22 21:36 105 H 17 138/75 97 06/08/22 21:23 17 97 06/08/22 21:21 99.5 F 120 H 18 126/62 99 06/08/22 13:36 98.3 F 116 H 17 136/93 100 06/08/22 12:29 98.3 F 116 H 18 136/93 100 Intake and Output 06/08/22 06/08/22 06/09/22 14:59 22:59 06:59 Intake Total 1000 507.833 Output Total 1156 200 Balance 1000 -648.167 -200 Intake: IV 1000 500 Intake, IV Titration 7.833 Amount Oxytocin 30 Units/500 ml 7.833 Ns 30 unit In Saline 1 500ml.bag @ Per Protocol IV .Q0M [facility] Rx#:[id number] Output: Urine 150 200 Uretheral (Meyer) 200 Estimated Blood Loss 600 Output, Quantitative 406 Blood Loss Other: Voiding Method Indwelling Catheter # Voids 2 Weight 102.058 kg - Exam Extremities: Present: normal, edema Abdomen: Present: normal appearance, soft Incision: Present: normal, dry, intact Uterus: Present: normal, firm - Labs Labs: Abnormal Lab Results - Last 24 Hours (Table) 06/08/22 06/09/22 Range/Units 13:00 05:45 WBC 16.4 H 18.0 H (3.8-10.6) k/uL RBC 3.37 L (3.80-5.40) m/uL Hct 31.8 L (34.0-46.0) % Plt Count 149 L 136 L (150-450) k/uL Neutrophils # 14.5 H 16.5 H (1.3-7.7) k/uL Lymphocytes # 0.8 L (1.0-4.8) k/uL Assessment and Plan (1) Term Current Visit: Yes Status: Acute Code(s): Z34.90 - ENCNTR FOR SUPRVSN OF NORMAL , UNSP, UNSP TRIMESTER SNOMED Code(s): 45907231 (2) Active labor Current Visit: Yes Status: Acute Code(s): WIA7406 - SNOMED Code(s): 514139848 (3) Maternal fever during labor Current Visit: Yes Status: Acute Code(s): O75.2 - PYREXIA DURING LABOR, NOT ELSEWHERE CLASSIFIED SNOMED Code(s): 209579037 (4) Non-reassuring heart tones complicating , antepartum Current Visit: Yes Status: Acute Code(s): O36.8390 - MATERN CARE FOR ABNLT FETL HRT RATE OR RHYM, UNSP TRI, UNSP SNOMED Code(s): 569838323 (5) Status post primary low transverse section Current Visit: Yes Status: Acute Code(s): Z98.891 - HISTORY OF UTERINE SCAR FROM PREVIOUS SURGERY SNOMED Code(s): 304110505 Plan: Patient is doing well postoperatively she is involuting without difficulty. Continue routine postoperative care. Anticipate discharge home tomorrow.
[2022-06-09] MEDS: IBUPROFEN 600 MG TAB PO SCH ×3 (06:33→18:09)
[2022-06-09] MEDS: SENNOSIDES-DOCUSATE SODIUM 1 EACH TAB PO SCH ×2 (07:37→19:53)
[2022-06-09] MEDS: LACTATED RINGERS 1,000 ML IV SCH ×2 (07:42→19:52)
[2022-06-09] MEDS: PRENATAL VIT-IRON-FOLIC ACID 1 EACH TABLET PO SCH (12:55)
[2022-06-09] MEDS ORDERED: HYDROcodone/APAP 5-325MG 1 EACH TAB PO PRN (19:21)
[2022-06-09] MEDS: ACETAMINOPHEN TAB 500 MG TAB PO SCH (19:53)
[2022-06-10] MEDS: LACTATED RINGERS 1,000 ML IV SCH ×2 (00:26)
[2022-06-10] MEDS: IBUPROFEN 600 MG TAB PO SCH ×3 (00:36→08:33)
[2022-06-10] MEDS: ACETAMINOPHEN TAB 500 MG TAB PO SCH ×2 (04:40→11:43)
[2022-06-10 09:26] VITALS: BP 111/60; PULSE 90; RESP 16; TEMP 98.3
--- NOTE | 2022-06-10 09:32 | P.DS ---
Providers Date of admission: 06/08/22 12:25 Expected date of discharge: 06/10/22 Attending physician: Vernell Fletcher Primary care physician: Stated None - Discharge Diagnosis(es) (1) Term Current Visit: Yes Status: Acute (2) Active labor Current Visit: Yes Status: Acute (3) Maternal fever during labor Current Visit: Yes Status: Acute (4) Non-reassuring heart tones complicating , antepartum Current Visit: Yes Status: Acute (5) Status post primary low transverse section Current Visit: Yes Status: Acute Hospital Course: this is a 32-year-old 1 para 0 that presented to labor and delivery on 06/08 at 39-5/7 weeks with complaints of regular painful contractions. Patient had noted contractions to the night which became more uncomfortable in the morning. Patient was noted to be 3 cm with a bulging bag of water upon admission. Patient made good progress and eventually underwent amniotomy and clear fluid was obtained. Patient made slow progress to complete, and was noted to have a maternal fever of 99.5. 1 g of oral Tylenol was given. A 500 mL bolus of lactated Ringer's was initiated in addition. heart tones were noted to be tachycardic into the 170s and then the 180s. Patient was noted to complete be complete at this time, and she began pushing. heart tones were then noted to be in the 190s with minimal variability. At this point the decision was made to proceed with primary low transverse section secondary to nonreassuring heart tones and suspected malposition. Patient and were counseled on heart tones and need for primary C- section. Multiple questions were answered patient and stated understanding and wished to proceed with agreed upon plan. Patient was taken back to the operating suite where epidural anesthesia was found be adequate she had a viable male infant delivered in the occiput posterior presentation, weight of 7 lbs. 9 oz. Apgars of 6 and 9 were noted at one and 5 minutes respectively. The rest of the was completed without difficulty. For full details on the please see the operative report. Patient's postoperative course has been uneventful. On this postoperative day #2 she is ambulating and voiding without difficulty. She states her pain is controlled with oral Tylenol and ibuprofen. Her lochia is moderate. She is breast-feeding with some difficulty. She would like discharge home later today. Patient Condition at Discharge: Good Plan - Discharge Summary New Discharge Prescriptions: No Action Kny-[id number]-Rcpfo Acid [-U Capsule (formulary)] 1 cap PO DAILY Discharge Medication List Hdb-Vaqp-Wbeaq Acid [-U Capsule (formulary)] 1 cap PO DAILY 11/02/21 [History] Follow up Appointment(s)/Referral(s): Vernell Fletcher DO [Doctor of Osteopathic Medicine] - 2 Weeks Patient Instructions/Handouts: (DC), (GEN) Discharge Disposition: HOME SELF-CARE
[2022-06-10] MEDS: PRENATAL VIT-IRON-FOLIC ACID 1 EACH TABLET PO SCH (10:25)
[2022-06-10] MEDS: SENNOSIDES-DOCUSATE SODIUM 1 EACH TAB PO SCH (10:25)
== END 2022-06-10 14:15 | disposition home or self-care (01) | DRG 788 ==
LOC: FBPOP 11:56 → 4FBP 12:25
PROVIDERS: ADMIT Obstetrics & Gynecology Obstetrics; ATTEND Obstetrics & Gynecology Obstetrics
PROC: 10D00Z1 Extraction of Products of Conception, Low, Open Approach (ICD-10-PCS; principal; 2022-06-08 20:40)
DX: O75.2 Pyrexia during labor, not elsewhere classified (principal); O76 Abnormality in fetal heart rate and rhythm complicating labor and delivery; Z37.0 Single live birth; Z3A.39 39 weeks gestation of pregnancy
CPT/HCPCS: 59025; 85025; 86850; 86900; 86901; 99213

== ENCOUNTER 2022-06-12 16:38 | Observation (INO) | payer BC ==
[2022-06-12] MEDS ORDERED: SODIUM CHLORIDE 0.9% 1,000 ML IV STA (18:07)
[2022-06-12] MEDS ORDERED: ACETAMINOPHEN TAB 500 MG TAB PO STA (18:08)
[2022-06-12] MEDS ORDERED: CLINDAMYCIN 900 MG in DEXTROSE 5% IN WATER 50 ML IVPB STA ×2 (19:11)
[2022-06-12 19:12] LABS: Basophils % (A) 0 %; Eosinophils # (A) 0.2 k/uL (0-0.7); Eosinophils % (A) 1 %; HCT 34.8 % (34.0-46.0); Lymphocytes # (A) 1.2 k/uL (1.0-4.8); Lymphocytes % (A) 11 %; MCHC 34.5 g/dL (31.0-37.0); MCV 95.8 fL (80.0-100.0); Mean Platelet Volume 7.7; Monocytes # (A) 0.6 k/uL (0-1.0); Monocytes % (A) 5 %; Neutrophils # (A) 9.3 k/uL (1.3-7.7); Neutrophils % (A) 81 %; Platelet Count 220 k/uL (150-450); Poikilocytosis Slight; RBC 3.63 m/uL (3.80-5.40); RDW 14.2 % (11.5-15.5); WBC 11.5 k/uL (3.8-10.6)
[2022-06-12 19:22] LABS: ALT 32 U/L (4-34); AST 37 U/L (14-36); African American GFR (CKD) >90 (>60 ml/min/1.73 sqM); Albumin 2.9 g/dL (3.5-5.0); Alkaline Phosphatase 201 U/L (38-126); Amylase 41 U/L (30-110); Anion Gap 13 mmol/L; Blood Urea Nitrogen 8 mg/dL (7-17); Calcium 8.2 mg/dL (8.4-10.2); Carbon Dioxide 20 mmol/L (22-30); Chloride 105 mmol/L (98-107); Glucose 100 mg/dL (74-99); Lipase 35 U/L (23-300); Magnesium 1.9 mg/dL (1.6-2.3); Non-African American GFR(CKD) >90 (>60 ml/min/1.73 sqM); Potassium 3.1 mmol/L (3.5-5.1); Sodium 138 mmol/L (137-145); Total Bilirubin 0.5 mg/dL (0.2-1.3); Total Protein 5.6 g/dL (6.3-8.2); Uric Acid 4.4 mg/dL (3.7-7.4)
[2022-06-12 19:23] LABS: INR 0.9 (<1.2); Prothrombin Time 9.9 sec (9.0-12.0)
[2022-06-12 19:24] LABS: Partial Thromboplastin Time 27.6 sec (22.0-30.0)
--- NOTE | 2022-06-12 19:29 | ED ---
Abdominal Pain HPI - General Chief Complaint: Abdominal Pain Stated Complaint: Post complications Time Seen by Provider: 06/12/22 17:57 Source: patient Mode of arrival: ambulatory Limitations: no limitations - History of Present Illness Initial Comments: Patient is a 32-year-old female presenting with chief complaint of abdominal pain. Patient had a on 06/[address] Fltecher. Patient was 39 weeks and 5 days, . Patient states they opted for after she was pushing for over an hour, she developed a fever, and the heart rate remained elevated. Patient states she was told there was meconium present. Patient states that since then she has had increasing abdominal pain, bloating, fever, chills, and B/L lower extremity swelling. She has been taking acetaminophen for fever and pain control. She states that her bleeding has been gradually decreasing, denies any purulent vaginal discharge. She admits to diarrhea. No dysuria. - Related Data Home Medications Medication Instructions Recorded Confirmed No Known Home Medications 06/12/22 06/12/22 Allergies Allergy/AdvReac Type Severity Reaction Status Date / Time amoxicillin [From Augmentin] Allergy Rash/Hives Verified 06/12/22 20:56 clavulanic acid Allergy Rash/Hives Verified 06/12/22 20:56 [From Augmentin] Review of Systems ROS Statement: Those systems with pertinent positive or pertinent negative responses have been documented in the HPI. ROS Other: All systems not noted in ROS Statement are negative. Past Medical History Past Medical History: Hyperlipidemia Additional Past Medical History / Comment(s): Pt states she will be 9 weeks on 11/05/21, high cholesterol but pt lost weight/changed diet so no longer a problem. History of Any Multi-Drug Resistant Organisms: None Reported Past Surgical History: No Surgical Hx Reported, Section Additional Past Surgical History / Comment(s): [place] teeth extractions, bilateral myringotomy/tubes. Past Anesthesia/Blood Transfusion Reactions: No Reported Reaction Past Psychological History: No Psychological Hx Reported Smoking Status: Never smoker Past Alcohol Use History: None Reported, Occasional Past Drug Use History: None Reported - Past Family History Father Family Medical History: Hyperlipidemia Additional Family Medical History / Comment(s): Heart issues. Mother Family Medical History: Hyperlipidemia Additional Family Medical History / Comment(s): Mother's side of family has alot of breast cancer, pt's mother did not have breast cancer. General Exam Limitations: no limitations General appearance: alert, in no apparent distress Head exam: Present: atraumatic, normocephalic, normal inspection Eye exam: Present: normal appearance, PERRL, EOMI. Absent: scleral icterus, conjunctival injection, periorbital swelling Neck exam: Present: normal inspection Respiratory exam: Present: normal lung sounds bilaterally. Absent: respiratory distress, wheezes, rales, rhonchi, stridor Cardiovascular Exam: Present: normal rhythm, tachycardia, normal heart sounds. Absent: systolic murmur, diastolic murmur, rubs, gallop, clicks GI/Abdominal exam: Present: soft, distended, tenderness. Absent: guarding, rebound, rigid Extremities exam: Present: pedal edema Neurological exam: Present: alert, oriented X3, CN II-XII intact Psychiatric exam: Present: normal affect, normal mood Skin exam: Present: warm, dry, intact, normal color. Absent: rash Course Vital Signs 06/12/22 06/12/22 06/12/22 17:14 18:33 21:41 Temperature 98.6 F 100.5 F H 98.8 F Pulse Rate 105 H 107 H Pulse Rate [ 109 H Pulse Oximetery ] Respiratory 20 18 16 Rate Blood Pressure 133/74 128/88 Blood Pressure 122/82 [Left Arm Sitting] O2 Sat by Pulse 99 95 98 Oximetry Medical Decision Making - Medical Decision Making Patient is a 32-year-old female presenting for abdominal pain post . She is a , was performed on 06/08. Patient admits to diffuse abdominal pain as well as fever and chills. On examination patient is exquisitely tender in all 4 quadrants. She is febrile at 100.5F. She is mildly tachycardic. Work up for endometritis was initiated. Patient is given fluid bolus and placed on maintenance rate of 130 mL per hour and given gentamicin and clindamycin after blood cultures were drawn. WBC 11.5. Coags are WNL. Lactic acid is 0.9. Urine is grossly negative. Pelvis ultrasound shows no clear evidence of retained products. CT of the abdomen suggests possible cellulitis around the umbilicus. On physical examination this is not grossly obvious. I discussed this case with Dr. Lind, patient will be admitted for observation and continued antibiotics. She requested that she come up to L&D. Patient is agreeable with this plan. Discussed homero Martinez - Lab Data Result diagrams: 06/12/22 18:52 06/12/22 18:52 Lab Results 06/12/22 06/12/22 06/12/22 Range/Units 18:52 18:52 18:52 WBC 11.5 H (3.8-10.6) k/uL RBC 3.63 L (3.80-5.40) m/uL Hgb 12.0 (11.4-16.0) gm/dL Hct 34.8 (34.0-46.0) % MCV 95.8 (80.0-100.0) fL MCH 33.0 (25.0-35.0) pg MCHC 34.5 (31.0-37.0) g/dL RDW 14.2 (11.5-15.5) % Plt Count 220 (150-450) k/uL MPV 7.7 Neutrophils % 81 % Lymphocytes % 11 % Monocytes % 5 % Eosinophils % 1 % Basophils % 0 % Neutrophils # 9.3 H (1.3-7.7) k/uL Lymphocytes # 1.2 (1.0-4.8) k/uL Monocytes # 0.6 (0-1.0) k/uL Eosinophils # 0.2 (0-0.7) k/uL Basophils # 0.0 (0-0.2) k/uL Poikilocytosis Slight PT 9.9 (9.0-12.0) sec INR 0.9 (<1.2) APTT 27.6 (22.0-30.0) sec Sodium 138 (137-145) mmol/L Potassium 3.1 L (3.5-5.1) mmol/L Chloride 105 (98-107) mmol/L Carbon Dioxide 20 L (22-30) mmol/L Anion Gap 13 mmol/L BUN 8 (7-17) mg/dL Creatinine 0.48 L (0.52-1.04) mg/dL Est GFR (CKD-EPI)AfAm >90 (>60 ml/min/1.73 sqM) Est GFR (CKD-EPI)NonAf >90 (>60 ml/min/1.73 sqM) Glucose 100 H (74-99) mg/dL Plasma Lactic Acid Alex (0.7-2.0) mmol/L Uric Acid 4.4 (3.7-7.4) mg/dL Calcium 8.2 L (8.4-10.2) mg/dL Magnesium 1.9 (1.6-2.3) mg/dL Total Bilirubin 0.5 (0.2-1.3) mg/dL AST 37 H (14-36) U/L ALT 32 (4-34) U/L Alkaline Phosphatase 201 H (38-126) U/L Total Protein 5.6 L (6.3-8.2) g/dL Albumin 2.9 L (3.5-5.0) g/dL Amylase 41 (30-110) U/L Lipase 35 (23-300) U/L Urine Color Urine Appearance (Clear) Urine pH (5.0-8.0) Ur Specific [place] (1.001-1.035) Urine Protein (Negative) Urine Glucose (UA) (Negative) Urine Ketones (Negative) Urine Blood (Negative) Urine Nitrite (Negative) Urine Bilirubin (Negative) Urine Urobilinogen (<2.0) mg/dL Ur Leukocyte Esterase (Negative) 06/12/22 06/12/22 Range/Units 18:52 19:56 WBC (3.8-10.6) k/uL RBC (3.80-5.40) m/uL Hgb (11.4-16.0) gm/dL Hct (34.0-46.0) % MCV (80.0-100.0) fL MCH (25.0-35.0) pg MCHC (31.0-37.0) g/dL RDW (11.5-15.5) % Plt Count (150-450) k/uL MPV Neutrophils % % Lymphocytes % % Monocytes % % Eosinophils % % Basophils % % Neutrophils # (1.3-7.7) k/uL Lymphocytes # (1.0-4.8) k/uL Monocytes # (0-1.0) k/uL Eosinophils # (0-0.7) k/uL Basophils # (0-0.2) k/uL Poikilocytosis PT (9.0-12.0) sec INR (<1.2) APTT (22.0-30.0) sec Sodium (137-145) mmol/L Potassium (3.5-5.1) mmol/L Chloride (98-107) mmol/L Carbon Dioxide (22-30) mmol/L Anion Gap mmol/L BUN (7-17) mg/dL Creatinine (0.52-1.04) mg/dL Est GFR (CKD-EPI)AfAm (>60 ml/min/1.73 sqM) Est GFR (CKD-EPI)NonAf (>60 ml/min/1.73 sqM) Glucose (74-99) mg/dL Plasma Lactic Acid Alex 0.9 (0.7-2.0) mmol/L Uric Acid (3.7-7.4) mg/dL Calcium (8.4-10.2) mg/dL Magnesium (1.6-2.3) mg/dL Total Bilirubin (0.2-1.3) mg/dL AST (14-36) U/L ALT (4-34) U/L Alkaline Phosphatase (38-126) U/L Total Protein (6.3-8.2) g/dL Albumin (3.5-5.0) g/dL Amylase (30-110) U/L Lipase (23-300) U/L Urine Color Light Yellow Urine Appearance Clear (Clear) Urine pH 7.0 (5.0-8.0) Ur Specific [place] 1.013 (1.001-1.035) Urine Protein Negative (Negative) Urine Glucose (UA) Negative (Negative) Urine Ketones Negative (Negative) Urine Blood Negative (Negative) Urine Nitrite Negative (Negative) Urine Bilirubin Negative (Negative) Urine Urobilinogen <2.0 (<2.0) mg/dL Ur Leukocyte Esterase Negative (Negative) Disposition Clinical Impression: endometritis Disposition: ADMITTED IP TO THIS [facility] Condition: Fair Time of Disposition: 20:54 Decision to Admit Reason: Admit from EC Decision Date: 06/12/22 Decision Time: 20:54
[2022-06-12] MEDS ORDERED: GENTAMICIN 360 MG in SODIUM CHLORIDE 0.9% 100 ML IVPB ONE (19:30)
--- NOTE | 2022-06-12 19:53 | CT ---
EXAMINATION TYPE: CT abdomen pelvis w con DATE OF EXAM: 06/12/2022 COMPARISON: None HISTORY: umbilical pain post CT DLP: 1790.3 mGycm Automated exposure control for dose reduction was used. CONTRAST: Performed with IV Contrast, patient injected with 100 mL of Isovue 300. Images obtained from the diaphragm to the floor of the pelvis with the IV contrast. There is subsegmental atelectasis at the lung bases. Heart size is normal. No pericardial effusion. T here are small pleural effusions. Liver spleen and stomach pancreas and gallbladder appear intact. The bile ducts are not dilated. There is no adrenal mass. Kidneys show satisfactory contrast opacification. No hydronephrosis. Ureter s are not dilated. No retroperitoneal adenopathy. There is an enlarged uterus from recent . Bladder distends smoothly. There is small amount of low-density free fluid in the pelvis. There is in creased density related to incision over the lower anterior abdomen. There is small fat-con taining umbilical hernia. There is subcutaneous edema around the umbilicus. There is mild small bowel mesenteric edema. No evidence of a mechanical bowel obstruction. No free ai r. The lumbar vertebrae have normal alignment. Posterior elements are intact. No compression fracture . The bony pelvis is intact. The hip joints are intact. IMPRESSION: Small amount of free fluid around the enlarged [id number] uterus. Fluid has low attenuation. Ther e is some mild small bowel mesenteric edema. No bowel obstruction. No free air. Mild focal subcutaneo us inflammatory changes around the umbilicus could relate to cellulitis. Minimal pleural fluid and subsegmental atelectasis at the lung bases.
--- NOTE | 2022-06-12 20:00 | US ---
EXAMINATION TYPE: US pelvic complete DATE OF EXAM: 06/12/2022 COMPARISON: NONE CLINICAL HISTORY: post- fever, r/o retained products. 4 days ago, umbilicus pain and fever TECHNIQUE: TA. Transabdominal sonographic images of the pelvis were acquired. Date of LMP: 10 months ago EXAM MEASUREMENTS: Uterus: 19.2 x 13.8 x 8.7 cm Endometrial Stripe: 1.4 cm Right Ovary: not seen Left Ovary: 3.0 x 2.0 x 2.5 cm 1. Uterus: Anteverted still grossly enlarged from 2. Endometrium: heterogeneous with shadowing echogenic foci that may be post surgical changes, or ai r, versus other etiology, no hypervascularity seen within endo canal 3. Right Ovary: not seen due to bowel gas and enlarged UT 4. Left Ovary: wnl 5. Bilateral Adnexa: mild free fluid seen within adnexa may relate to recent 6. Posterior cul-de-sac: wnl IMPRESSION: There is an enlarged uterus from recent . No definite sign of any retained products. Small amount of free fluid in the pelvis. No adnexal mass.
[2022-06-12 20:11] LABS: Appearance,Urine Clear (Clear); Bilirubin,Urine Negative (Negative); Blood,Urine Negative (Negative); Color,Urine Light Yellow; Glucose,Urine (UA) Negative (Negative); Ketones,Urine Negative (Negative); Leukocyte Esterase,Urine Negative (Negative); Nitrite,Urine Negative (Negative); Protein,Urine Negative (Negative); Specific Gravity,Urine 1.013 (1.001-1.035); Urobilinogen,Urine <2.0 mg/dL (<2.0)
[2022-06-12] MEDS ORDERED: NALOXONE 0.4 MG/ML 1 ML VIAL IV PRN (20:48)
[2022-06-12] MEDS: SODIUM CHLORIDE 0.9% 1,000 ML IV SCH (22:07)
[2022-06-12 22:16] VITALS: RESP 16
[2022-06-12] MEDS ORDERED: IBUPROFEN 600 MG TAB PO PRN (22:32)
[2022-06-12] MEDS ORDERED: GENTAMICIN PER PHARMACY MISCELLANE SCH (22:45)
[2022-06-13] MEDS: CLINDAMYCIN 900 MG in DEXTROSE 5% IN WATER 50 ML IVPB SCH ×6 (03:44→19:30)
[2022-06-13] MEDS: ACETAMINOPHEN TAB 325 MG TAB PO PRN ×2 (03:46→12:27)
[2022-06-13] MEDS: SODIUM CHLORIDE 0.9% 1,000 ML IV SCH ×3 (04:01→19:29)
[2022-06-13] MEDS ORDERED: GENTAMICIN TROUGH DUE 1 EACH MISC MISCELLANE ONE (05:00)
[2022-06-13 06:05] LABS: Basophils % (A) 0 %; Eosinophils # (A) 0.2 k/uL (0-0.7); Eosinophils % (A) 2 %; HCT 33.2 % (34.0-46.0); HGB 11.5 gm/dL (11.4-16.0); Lymphocytes % (A) 12 %; MCH 33.2 pg (25.0-35.0); MCHC 34.7 g/dL (31.0-37.0); MCV 95.5 fL (80.0-100.0); Mean Platelet Volume 8.3; Monocytes # (A) 0.6 k/uL (0-1.0); Monocytes % (A) 7 %; Neutrophils # (A) 6.5 k/uL (1.3-7.7); Neutrophils % (A) 76 %; Platelet Count 172 k/uL (150-450); Poikilocytosis Slight; RBC 3.47 m/uL (3.80-5.40); RDW 14.5 % (11.5-15.5); WBC 8.5 k/uL (3.8-10.6)
[2022-06-13 06:16] LABS: ALT 24 U/L (4-34); AST 23 U/L (14-36); African American GFR (CKD) >90 (>60 ml/min/1.73 sqM); Albumin 2.3 g/dL (3.5-5.0); Alkaline Phosphatase 133 U/L (38-126); Anion Gap 6 mmol/L; Blood Urea Nitrogen 8 mg/dL (7-17); Calcium 7.4 mg/dL (8.4-10.2); Carbon Dioxide 23 mmol/L (22-30); Chloride 106 mmol/L (98-107); Glucose 80 mg/dL (74-99); Non-African American GFR(CKD) >90 (>60 ml/min/1.73 sqM); Sodium 135 mmol/L (137-145); Total Bilirubin 0.6 mg/dL (0.2-1.3); Total Protein 4.4 g/dL (6.3-8.2)
[2022-06-13] MEDS: GENTAMICIN 130 MG in SODIUM CHLORIDE 0.9% 100 ML IVPB SCH ×2 (09:12→19:29)
--- NOTE | 2022-06-13 19:02 | P.PN ---
Progress Note - Text Progress Note Date: 06/13/22 Patient admitted for presumed endometritis status post primary . Patient was doing well today. Patient has not had a fever since presenting to labor and delivery. Patient was up to the bathroom in her IV fell out, after multiple attempts no access could be obtained. Anesthesia was called and after multiple attempts patient is refusing IV access. Patient does feel well overall. We will switch over to oral antibiotics at this time. We will plan CBC in the morning and most likely discharged. Would ideally like observation at 24 hours without fever prior to discharge
--- NOTE | 2022-06-13 19:03 | P.HPOB ---
History of Present Illness H&P Date: 06/13/22 Chief Complaint: Endometritis This is a 32-year-old G1 now P1 status post primary proximally 5 days ago. Patient in labor did develop a maternal fever which resolved after delivery. Patient was sent home on postoperative day #2 feeling well. Patient states last evening she began having fever, chills, abdominal pain. Patient states she then presented to the emergency department. Patient was begun on clindamycin, gentamicin. Patient was given Tylenol. She states her milk did come in yesterday but pain was localized to the abdomen yesterday afternoon. She is breast-feeding without difficulty. Lochia is moderate. This morning she states she feels well. She denies feeling feverish. She states she is not in any pain this morning. She is ambulating and voiding without difficulty. Review of Systems Constitutional: Denies chills, Denies fatigue, Denies fever Ears, nose, mouth and throat: Denies headache Cardiovascular: Reports leg edema Respiratory: Denies dyspnea Gastrointestinal: Denies nausea, Denies vomiting Past Medical History Past Medical History: Hyperlipidemia Additional Past Medical History / Comment(s): Pt states she will be 9 weeks on 11/05/21, high cholesterol but pt lost weight/changed diet so no longer a problem. History of Any Multi-Drug Resistant Organisms: None Reported Past Surgical History: No Surgical Hx Reported, Section Additional Past Surgical History / Comment(s): [place] teeth extractions, bilateral myringotomy/tubes. Past Anesthesia/Blood Transfusion Reactions: No Reported Reaction Past Psychological History: No Psychological Hx Reported Smoking Status: Never smoker Past Alcohol Use History: None Reported, Occasional Past Drug Use History: None Reported - Past Family History Father Family Medical History: Hyperlipidemia Additional Family Medical History / Comment(s): Heart issues. Mother Family Medical History: Hyperlipidemia Additional Family Medical History / Comment(s): Mother's side of family has alot of breast cancer, pt's mother did not have breast cancer. Medications and Allergies Home Medications Medication Instructions Recorded Confirmed Type No Known Home Medications 06/12/22 06/12/22 History Allergies Allergy/AdvReac Type Severity Reaction Status Date / Time amoxicillin [From Augmentin] Allergy Rash/Hives Verified 06/12/22 20:56 clavulanic acid Allergy Rash/Hives Verified 06/12/22 20:56 [From Augmentin] Exam Osteopathic Statement: *. No significant issues noted on an osteopathic structu ral exam other than those noted in the History and Physical/Consult. 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 a well-nourished well-developed non female in no acute distress, breathing is nonlabored, heart has a regular rhythm, abdomen is , minimal tenderness to palpation is appreciated - OBG Physical Exam Abdomen: bowel sounds normal Results Result Diagrams: 06/13/22 05:26 06/13/22 05:26 Abnormal Lab Results - Last 24 Hours (Table) 06/12/22 06/12/22 06/13/22 Range/Units 18:52 18:52 05:26 WBC 11.5 H (3.8-10.6) k/uL RBC 3.63 L 3.47 L (3.80-5.40) m/uL Hct 33.2 L (34.0-46.0) % Neutrophils # 9.3 H (1.3-7.7) k/uL Sodium (137-145) mmol/L Potassium 3.1 L (3.5-5.1) mmol/L Carbon Dioxide 20 L (22-30) mmol/L Creatinine 0.48 L (0.52-1.04) mg/dL Glucose 100 H (74-99) mg/dL Calcium 8.2 L (8.4-10.2) mg/dL AST 37 H (14-36) U/L Alkaline Phosphatase 201 H (38-126) U/L Total Protein 5.6 L (6.3-8.2) g/dL Albumin 2.9 L (3.5-5.0) g/dL 06/13/22 Range/Units 05:26 WBC (3.8-10.6) k/uL RBC (3.80-5.40) m/uL Hct (34.0-46.0) % Neutrophils # (1.3-7.7) k/uL Sodium 135 L (137-145) mmol/L Potassium 3.0 L (3.5-5.1) mmol/L Carbon Dioxide (22-30) mmol/L Creatinine 0.47 L (0.52-1.04) mg/dL Glucose (74-99) mg/dL Calcium 7.4 L (8.4-10.2) mg/dL AST (14-36) U/L Alkaline Phosphatase 133 H (38-126) U/L Total Protein 4.4 L (6.3-8.2) g/dL Albumin 2.3 L (3.5-5.0) g/dL Assessment and Plan (1) endometritis Current Visit: Yes Status: Acute Code(s): O86.12 - ENDOMETRITIS FOLLOWING DELIVERY SNOMED Code(s): 52618727 Plan: 32yo s/p LTCS a proximally 5 days ago. Patient was admitted last evening with complaints of uterine chills and abdominal pain. Presumed endometritis was diagnosed. Patient was begun on clindamycin, gentamicin IV. Patient is feeling well today. Patient is counseled on the need for 24 hours of antibiotics and no fever for discharge home tomorrow.
[2022-06-13] MEDS: CEPHALEXIN 500 MG CAP PO SCH (19:32)
[2022-06-13] MEDS: SENNOSIDES-DOCUSATE SODIUM 1 EACH TAB PO SCH (20:54)
[2022-06-13 23:25] VITALS: BP 107/66
[2022-06-14] MEDS: ACETAMINOPHEN TAB 325 MG TAB PO PRN (00:46)
[2022-06-14] MEDS: SODIUM CHLORIDE 0.9% 1,000 ML IV SCH (02:54)
[2022-06-14 08:16] VITALS: PULSE 97; TEMP 98.5
[2022-06-14] MEDS ORDERED: GENTAMICIN TROUGH DUE 1 EACH MISC MISCELLANE ONE (08:30)
[2022-06-14] MEDS: CEPHALEXIN 500 MG CAP PO SCH (09:03)
[2022-06-14] MEDS: SENNOSIDES-DOCUSATE SODIUM 1 EACH TAB PO SCH (09:04)
[2022-06-14 09:12] LABS: HCT 33.2 % (34.0-46.0); HGB 11.3 gm/dL (11.4-16.0); MCH 32.6 pg (25.0-35.0); MCHC 34.2 g/dL (31.0-37.0); MCV 95.4 fL (80.0-100.0); Mean Platelet Volume 7.8; Platelet Count 235 k/uL (150-450); Poikilocytosis Slight; RBC 3.48 m/uL (3.80-5.40); RDW 13.9 % (11.5-15.5); WBC 8.9 k/uL (3.8-10.6)
[2022-06-14 09:34] LABS: African American GFR (CKD) >90 (>60 ml/min/1.73 sqM); Non-African American GFR(CKD) >90 (>60 ml/min/1.73 sqM)
[2022-06-14] MEDS ORDERED: GENTAMICIN PEAK DUE 1 EACH MISC MISCELLANE ONE (11:00)
--- NOTE | 2022-06-14 13:15 | P.DS ---
Providers Date of admission: 06/12/22 21:27 Expected date of discharge: 06/14/22 Attending physician: Annalisa Lind Primary care physician: Stated None - Discharge Diagnosis(es) (1) endometritis Current Visit: Yes Status: Acute Hospital Course: This is a 32-year-old 1 now para 1 that was admitted yesterday status post primary , 5 days. Patient did have a maternal fever in labor which resolved after delivery. Patient then presented the emergency department yesterday 06/13 with complaints of not feeling well and abdominal pain. Patient states that she was having fever and chills. Patient was admitted and begun on Clinda and gentamicin. Patient was given Tylenol for her fever. Patient states she has felt well since being on labor and delivery. Patient is noting a clogged milk duct her milk came in the same day as her abdominal pain began. She states her lochia is minimal. She states she is pumping without difficulty. She denies fever or chills. She is urinating without difficulty. Her CBC is within normal limits this morning no leukocytosis is appreciated. Patient Condition at Discharge: Good Plan - Discharge Summary New Discharge Prescriptions: No Action No Known Home Medications Discharge Medication List No Known Home Medications 06/12/22 [History] Follow up Appointment(s)/Referral(s): Vernell Fletcher DO [Doctor of Osteopathic Medicine] - 1 Week Patient Instructions/Handouts: Endometritis (GEN), Endometritis (DC) Discharge Disposition: HOME SELF-CARE
== END 2022-06-14 14:30 | disposition home or self-care (01) ==
LOC: EC 16:38 → 4FBP 21:27
PROVIDERS: ADMIT Obstetrics & Gynecology; ATTEND Obstetrics & Gynecology
DX: O86.12 Endometritis following delivery (principal); J98.11 Atelectasis; J90 Pleural effusion, not elsewhere classified; K42.9 Umbilical hernia without obstruction or gangrene; R16.0 Hepatomegaly, not elsewhere classified; R16.1 Splenomegaly, not elsewhere classified; Z88.1 Allergy status to other antibiotic agents; Z88.8 Allergy status to other drugs, medicaments and biological substances; Z80.3 Family history of malignant neoplasm of breast; Z83.438 Family history of other disorder of lipoprotein metabolism and other lipidemia; Z82.49 Family history of ischemic heart disease and other diseases of the circulatory system
CPT/HCPCS: 96366; 96368; 96361; 96365; 99285; 36415; 80053 ×2; 82150; 82565; 83605; 83690; 83735; 84550; 85025 ×2; 85027; 85610; 85730; 81003; 87040; 80170; 76856; 74177; G0378 ×3; J1580 ×2; Q9967